=== PATIENT | male | born 1930 | race Caucasian/White ===

== ENCOUNTER → 2018-04-30 | Outpatient (CLI) | payer MEDICARE, BC ==
[~2018-04-30] VITALS: Ht 182.9 cm; Wt 77.4 kg
[~2018-04-30] MED LIST: ALDACTONE 25MG25 M1 PO; ASPI325T6 PO; ASPIRIN 81M81 MG/TA2 PO; AVODART 0.5MG0.5 MG PO; BENICAR HCT 251 TAB PO; CALCIUM500 MG PO; CARTIA XT180 MG PO; DOXYCYCLINE 10100 MG PO; ENALAPRIL20 MG PO; HYZAAR 25 MG-101 TAB PO; LIPITOR 80MG80 MG PO; LOSARTAN POTASS1 TA3 PO; LOW DOSE ASPIRI81 MG PO; MASON NATURAL1200 MG PO; METOPROLOL SUC200 M1 PO; MULTIPLE VITAMI1 CAP PO; OSCAL 500 TAB500 MG PO; PLAVIX 75MG TAB75 MG PO; SAW PALMETTO S450 MG PO; TOPROL XL 25MG25 MG PO; TOPROL XL 50MG50 MG PO; TOPROL XL100 MG PO; TRIAMCINOLONE0.1% TP; VITAMIN C500 MG PO; VITAMIN D 400400 IU PO; VITAMINC1000TA PO; ZANTAC 150MG T150 MG PO; ZANTAC150 MG PO
[2018-04-30 06:04] VITALS: BP 176/97; PULSE 60
== END ==
LOC: COL.CARD 05:42
DX: I25.10 Atherosclerotic heart disease of native coronary artery without angina pectoris (principal)
CPT/HCPCS: A9502

== ENCOUNTER 2021-05-15 15:37 | Outpatient (RCR) | payer SELFPAY | END 2021-05-16 | disposition home or self-care (01) | LOC: COL.CR | DX: Z02.89 Encounter for other administrative examinations (principal) ==